=== PATIENT | male | born 1995 | race Caucasian/White ===

== ENCOUNTER 2019-07-28 14:39 | Emergency (ER) | payer OTHER, SELFPAY ==
[2019-07-28 14:44] VITALS: BP 129/72; PULSE 76; RESP 12; TEMP 36.8; O2SAT 98
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
== END 2019-07-28 15:23 | disposition home or self-care (01) ==
LOC: ER 15:20
PROVIDERS: Emergency Provider Emergency Medicine
DX: R51 Headache (principal); V43.12XA Car passenger injured in collision with other type car in nontraffic accident, initial encounter
CPT/HCPCS: 99282